=== PATIENT | male | born 1970 | race African-American/Black ===

== ENCOUNTER 2017-02-11 10:45 | Emergency (ER) | payer MEDICAID, OTHER ==
[~2017-02-11] VITALS: Ht 175.3 cm; Wt 99.3 kg
[~2017-02-11 10:45] MED LIST: ASPI81CT89 PO; ATEN25TA7 PO; FLUO10CA21 PO; LISI2.5T12 PO; QUET25TA PO; SIMV5TAB1 PO
[2017-02-11 10:51] VITALS: BP 139/77
[2017-02-11 13:17] LABS: BASOPHILS # (AUTO) 0.2 K/uL (0.00-0.22); EOSINOPHILS # (AUTO) 0.2 K/uL (0-0.4); EOSINOPHILS % (AUTO) 3.5 % (0.0-4.0); HEMATOCRIT 48.3 % (36-52); HEMOGLOBIN 15.2 g/dL (12.0-18.0); MEAN CORPUSCULAR HEMOGLOBIN 27 pg (27-31); MEAN CORPUSCULAR HGB CONC 32 g/dL (33-37); MEAN CORPUSCULAR VOLUME 86 fL (80-94); MONOCYTES # (AUTO) 0.5 K/uL (0.8-1.0); MONOCYTES % (AUTO) 8.2 % (1.7-9.3); NEUTROPHILS # (AUTO) 2.7 K/uL (1.8-7.7); NEUTROPHILS % (AUTO) 49.3 % (42.2-75.2); PLATELET COUNT (AUTO) 287 K/uL (140-450); RED BLOOD CELL COUNT(AUTO) 5.61 MIL/uL (4.20-6.10); RED CELL DISTRIBUTION WIDTH 13.5 % (11.6-13.7); WHITE BLOOD COUNT (AUTO) 5.6 K/uL (4.8-10.8)
[2017-02-11] MEDS: NACL 0.9% 1,000 ML IV SCH (13:22)
[2017-02-11 13:38] LABS: ALANINE AMINOTRANSFERASE 43 U/L (12-78); ALBUMIN 3.6 g/dL (3.4-5.0); ALKALINE PHOSPHATASE 65 U/L (46-116); AMYLASE 107 U/L (25-115); ANION GAP 11.2 (8-16); ASPARTATE AMINOTRANSFERASE 20 U/L (15-37); CALCIUM 9.2 mg/dL (8.5-10.1); CHLORIDE 103 mmol/L (98-107); CREATININE 1.1 mg/dL (0.6-1.3); GFR ARICAN-AMERICAN 94 mL/min (>90); GFR NON ARICAN-AMERICAN 77 mL/min (>90); GLUCOSE 71 mg/dL (74-106); LIPASE 123 U/L (73-393); POTASSIUM 4.2 mmol/L (3.5-5.1); SODIUM SERUM 139 mmol/L (136-145); TOTAL BILIRUBIN 0.2 mg/dL (0.0-1.0); TOTAL PROTEIN, SERUM 7.1 g/dL (6.4-8.2); UREA NITROGEN, BLOOD 14 mg/dL (7-18)
[2017-02-11 13:49] LABS: APPEARANCE,URINE CLEAR (CLEAR); BILIRUBIN,URINE NEGATIVE (NEGATIVE); BLOOD, URINE NEGATIVE (NEGATIVE); COLOR,URINE YELLOW (YELLOW); LEUKOCYTE ESTERASE ,URINE NEGATIVE (NEGATIVE); NITRITE, URINE NEGATIVE (NEGATIVE); PH,URINE 5.5 (5.0-9.0); PROTEIN,URINE NEGATIVE (NEGATIVE); UGLUCOSE NEGATIVE (NEGATIVE); UROBILINOGEN,URINE 0.2 EU/dL (0.2 - 1)
[2017-02-11 14:03] LABS: ACETONE, SERUM NEGATIVE (NEGATIVE)
[2017-02-11 14:15] VITALS: BP 122/69
[2017-02-11 14:27] LABS: BACTERIA,URINE 0-2 (RARE) /HPF (None Seen); RBC,URINE 0-5 (RARE) /HPF (0-5); SQUAMOUS EPITHELIAL CELL,UR 0-3 (FEW) /LPF (0-3 (FEW)); WBC,URINE 0-5 (RARE) /HPF (0-5)
== END 2017-02-11 14:15 | disposition home or self-care (01) ==
LOC: MED 10:45
DX: R63.1 Polydipsia (principal); R35.0 Frequency of micturition; D17.22 Benign lipomatous neoplasm of skin and subcutaneous tissue of left arm; D17.21 Benign lipomatous neoplasm of skin and subcutaneous tissue of right arm; I10 Essential (primary) hypertension; E78.00 Pure hypercholesterolemia, unspecified; Z79.82 Long term (current) use of aspirin; Z79.899 Other long term (current) drug therapy
CPT/HCPCS: 36415; 80053; 81001; 82009; 82150; 83690; 84484; 85025; 93005; 99285

== ENCOUNTER 2021-01-22 14:23 | Emergency (ER) | payer OTHER ==
[~2021-01-22] VITALS: Ht 167.6 cm; Wt 96.6 kg
[~2021-01-22 14:23] MED LIST changes: +ASPI-1822 PO; -ASPI81CT89 PO; -SIMV5TAB1 PO; +SIMV5TAB55 PO
[2021-01-22 14:27] VITALS: BP 158/91
--- NOTE | 2021-01-22 14:34 | NUR ---
Patient ambulated to room 8 with a steady gait.
--- NOTE | 2021-01-22 14:35 | NUR ---
50 Y/M PRESENTS TO ED FOR HTN SINCE YESTERDAY 168/105. PT REPORTS DIZZINESS, DENIES CHEST PAIN, SOB, NAUSEA, OR HEADACHE. RECENTLY CHANGED BP RX TO VALSARTAN X 1 MONTH. PREVIOUSLY TAKING HYDROCHLORATHIAZIDE 25 MG PMH- HTN, BORDERLINE DM, HLD RX- LIPITOR, VALSARTAN 320MG
--- NOTE | 2021-01-22 14:42 | NUR ---
PA Fraser at the bedside evaluating patient.
[2021-01-22 15:11] LABS: BASOPHILS % (AUTO) 0.8 % (0.0-2.0); EOSINOPHILS # (AUTO) 0.2 K/uL (0-0.4); EOSINOPHILS % (AUTO) 3.1 % (0.0-4.0); HEMATOCRIT 47.2 % (36-52); HEMOGLOBIN 15.9 g/dL (12.0-18.0); LYMPHOCYTES # (AUTO) 1.7 K/uL (2.0-11.5); MEAN CORPUSCULAR HEMOGLOBIN 30 pg (27-31); MEAN CORPUSCULAR HGB CONC 34 g/dL (33-37); MEAN CORPUSCULAR VOLUME 88.4 fL (80-94); MONOCYTES # (AUTO) 0.3 K/uL (0.8-1.0); MONOCYTES % (AUTO) 5.2 % (1.7-9.3); NEUTROPHILS # (AUTO) 3.5 K/uL (1.8-7.7); NEUTROPHILS % (AUTO) 60.9 % (42.2-75.2); PLATELET COUNT (AUTO) 285 K/uL (140-450); RED BLOOD CELL COUNT(AUTO) 5.34 MIL/uL (4.20-6.10); WHITE BLOOD COUNT (AUTO) 5.7 K/uL (4.8-10.8)
--- NOTE | 2021-01-22 15:11 | NUR ---
late entry: Patient placed on pulse ox and 3 lead.
--- NOTE | 2021-01-22 15:12 | NUR ---
xray at bedside
--- NOTE | 2021-01-22 15:22 | NUR ---
Patient picked up by cytotechnologist/histotechnologist and taken to CT via wheelchair.
[2021-01-22 15:28] LABS: ALBUMIN 4.1 g/dL (3.4-5.0); ANION GAP 8.2 (8-16); CARBON DIOXIDE 32.4 mmol/L (21-32); CREATININE 1.5 mg/dL (0.6-1.3); POTASSIUM 3.6 mmol/L (3.5-5.1); TOTAL BILIRUBIN 0.4 mg/dL (0.0-1.0)
[2021-01-22] MEDS ORDERED: HYDR-4004 PO (17:13)
[2021-01-22 17:27] VITALS: BP 133/92
--- NOTE | 2021-01-22 17:27 | NUR ---
Patient discharged with v/s stable. Written and verbal after care instructions given and explained. Patient alert, oriented and verbalized understanding of instructions. Ambulatory with steady gait. All questions addressed prior to discharge. ID band removed. Patient advised to follow up with PMD. Rx of Hydrochlorothiazide given. Patient educated on indication of medication including possible reaction and side effects. Opportunity to ask questions provided and answered.
== END 2021-01-22 17:27 | disposition home or self-care (01) ==
LOC: MED 14:23
DX: I10 Essential (primary) hypertension (principal); R51.9 Headache, unspecified; R42 Dizziness and giddiness; E78.5 Hyperlipidemia, unspecified; Z79.899 Other long term (current) drug therapy; Z79.82 Long term (current) use of aspirin
CPT/HCPCS: 36415; 70450; 71045; 80053; 84484; 85025; 93005; 99285

== ENCOUNTER 2021-08-09 11:11 | Emergency (ER) | payer OTHER ==
[~2021-08-09] VITALS: Ht 167.6 cm; Wt 101.6 kg
[~2021-08-09 11:11] MED LIST changes: +HYDR-4004 PO
[2021-08-09 11:19] VITALS: BP 157/96
--- NOTE | 2021-08-09 11:24 | NUR ---
AMBULATED TO BED 3
--- NOTE | 2021-08-09 11:34 | NUR ---
51/M BIB SELF WITH C/O GROIN PAIN, STATES HE NOTICED A "BUMP" ON HIS PENIS ONE MONTH AGO AND IT HAS PROGRESSIVELY GOTTEN BIGGER. DENIES URINARY SYMPTOMS, N/V/D, FEVER OR CHILLS. SAFETY PRECAUTIONS IN PLACE. MEDHX: HTN ALLERGIES: DENIES
--- NOTE | 2021-08-09 12:22 | NUR ---
Patient appears to be resting comfortably in bed. Vital Signs within normal limits. Respirations even and unlabored.
[2021-08-09 12:24] LABS: BASOPHILS % (AUTO) 0.7 % (0.0-2.0); EOSINOPHILS # (AUTO) 0.1 K/uL (0-0.4); EOSINOPHILS % (AUTO) 1.7 % (0.0-4.0); HEMATOCRIT 44.5 % (36-52); HEMOGLOBIN 15.1 g/dL (12.0-18.0); LYMPHOCYTES # (AUTO) 1.6 K/uL (2.0-11.5); LYMPHOCYTES % (AUTO) 32.9 % (20.5-51.1); MEAN CORPUSCULAR HEMOGLOBIN 30 pg (27-31); MEAN CORPUSCULAR HGB CONC 34 g/dL (33-37); MEAN CORPUSCULAR VOLUME 87.4 fL (80-94); MONOCYTES # (AUTO) 0.3 K/uL (0.8-1.0); MONOCYTES % (AUTO) 6.8 % (1.7-9.3); NEUTROPHILS # (AUTO) 2.9 K/uL (1.8-7.7); NEUTROPHILS % (AUTO) 57.9 % (42.2-75.2); PLATELET COUNT (AUTO) 277 K/uL (140-450); RED CELL DISTRIBUTION WIDTH 14.9 % (11.6-13.7)
[2021-08-09 12:27] LABS: APPEARANCE,URINE CLEAR (CLEAR); BILIRUBIN,URINE NEGATIVE (NEGATIVE); BLOOD, URINE NEGATIVE (NEGATIVE); COLOR,URINE YELLOW (YELLOW); LEUKOCYTE ESTERASE ,URINE NEGATIVE (NEGATIVE); NITRITE, URINE NEGATIVE (NEGATIVE); UGLUCOSE NEGATIVE (NEGATIVE)
[2021-08-09 12:32] LABS: ANION GAP 9.2 (8-16); CARBON DIOXIDE 31.7 mmol/L (21-32); CREATININE 1.2 mg/dL (0.6-1.3); POTASSIUM 3.9 mmol/L (3.5-5.1)
--- NOTE | 2021-08-09 12:43 | NUR ---
PT AMBULATED TO THE RESTROOM.
--- NOTE | 2021-08-09 13:30 | NUR ---
pt taken to ct
--- NOTE | 2021-08-09 13:45 | NUR ---
pt back from CT
--- NOTE | 2021-08-09 14:45 | NUR ---
Patient discharged with v/s stable. Written and verbal after care instructions OF HYPERTENSION given and explained. Patient verbalized understanding. Ambulatory with steady gait. All questions addressed prior to discharge. Advised to follow up with PMD.
== END 2021-08-09 14:45 | disposition home or self-care (01) ==
LOC: MED 11:11
DX: N48.9 Disorder of penis, unspecified (principal)
CPT/HCPCS: 36415; 74177; 80048; 81003; 85025; 99285; Q9967

== ENCOUNTER 2022-01-09 08:36 | Emergency (ER) | payer OTHER ==
[~2022-01-09] VITALS: Ht 167.6 cm; Wt 99.8 kg
[2022-01-09 08:38] VITALS: BP 162/96
--- NOTE | 2022-01-09 08:55 | NUR ---
51 YEARS OLD MALE PRESENTS TO ER C/O CHEST PRESSURE FOR 3-4 DAYS ASSOCIATED WITH SOB DENIES NAUSEA VOMITING. PLACED ON RV PARTS AND SERVICE DIRECTOR CONTINUOUS PULSE OX, EKG COMPLETED GIVEN TO DR WOOTEN NO ACUTE DISTRESS NOTED WILL CONTINUE TO MONITOR.
[2022-01-09 09:24] LABS: BASOPHILS % (AUTO) 1.1 % (0.0-2.0); EOSINOPHILS # (AUTO) 0.1 K/uL (0-0.4); EOSINOPHILS % (AUTO) 2.3 % (0.0-4.0); HEMATOCRIT 45.3 % (36-52); HEMOGLOBIN 15.5 g/dL (12.0-18.0); LYMPHOCYTES # (AUTO) 1.5 K/uL (2.0-11.5); LYMPHOCYTES % (AUTO) 35.3 % (20.5-51.1); MEAN CORPUSCULAR HEMOGLOBIN 30 pg (27-31); MEAN CORPUSCULAR HGB CONC 34 g/dL (33-37); MEAN CORPUSCULAR VOLUME 87.8 fL (80-94); MONOCYTES # (AUTO) 0.4 K/uL (0.8-1.0); MONOCYTES % (AUTO) 10.4 % (1.7-9.3); NEUTROPHILS # (AUTO) 2.2 K/uL (1.8-7.7); NEUTROPHILS % (AUTO) 50.9 % (42.2-75.2); PLATELET COUNT (AUTO) 276 K/uL (140-450); RED BLOOD CELL COUNT(AUTO) 5.16 MIL/uL (4.20-6.10); RED CELL DISTRIBUTION WIDTH 14.5 % (11.6-13.7); WHITE BLOOD COUNT (AUTO) 4.3 K/uL (4.8-10.8)
[2022-01-09 09:44] LABS: ALBUMIN 3.7 g/dL (3.4-5.0); ANION GAP 11.8 (8-16); CARBON DIOXIDE 30.6 mmol/L (21-32); CREATININE 1.2 mg/dL (0.6-1.3); POTASSIUM 3.4 mmol/L (3.5-5.1); TOTAL BILIRUBIN 0.5 mg/dL (0.0-1.0)
--- NOTE | 2022-01-09 10:22 | NUR ---
PATIENT REASSESS NO ACUTE CHANGES C/O PAIN 8-10 DR WOOTEN NOTIFIED.
[2022-01-09] MEDS ORDERED: ASPIRIN 325 MG TAB PO ONE (10:25)
[2022-01-09 12:58] VITALS: BP 126/80
--- NOTE | 2022-01-09 13:01 | NUR ---
Patient discharged with v/s stable. Written and verbal after care instructions given and explained. Patient verbalized understanding. Ambulatory with steady gait. All questions addressed prior to discharge. Advised to follow up with PMD.
== END 2022-01-09 13:01 | disposition home or self-care (01) ==
LOC: MED 08:36
DX: R07.9 Chest pain, unspecified (principal); R06.02 Shortness of breath; I10 Essential (primary) hypertension
CPT/HCPCS: 36415; 71045; 80053; 83880; 84484; 85025; 93005; 99285

== ENCOUNTER 2022-01-26 06:17 | Emergency (ER) | payer OTHER ==
[~2022-01-26] VITALS: Ht 167.6 cm; Wt 101.6 kg
[2022-01-26 06:20] VITALS: BP 160/108
[2022-01-26] MEDS ORDERED: ASPIRIN 81 MG TAB.CHEW PO ONE (06:40)
[2022-01-26] MEDS ORDERED: ALUMINUM HYD/MAG/SIMETHICONE 30 ML UDC PO ONE (07:10)
[2022-01-26 07:18] LABS: BASOPHILS % (AUTO) 0.8 % (0.0-2.0); EOSINOPHILS # (AUTO) 0.2 K/uL (0-0.4); EOSINOPHILS % (AUTO) 3.4 % (0.0-4.0); HEMOGLOBIN 15.4 g/dL (12.0-18.0); LYMPHOCYTES # (AUTO) 1.7 K/uL (2.0-11.5); LYMPHOCYTES % (AUTO) 36.2 % (20.5-51.1); MEAN CORPUSCULAR HEMOGLOBIN 30 pg (27-31); MEAN CORPUSCULAR HGB CONC 34 g/dL (33-37); MEAN CORPUSCULAR VOLUME 88.6 fL (80-94); MONOCYTES # (AUTO) 0.4 K/uL (0.8-1.0); MONOCYTES % (AUTO) 9.6 % (1.7-9.3); NEUTROPHILS # (AUTO) 2.3 K/uL (1.8-7.7); PLATELET COUNT (AUTO) 253 K/uL (140-450); RED BLOOD CELL COUNT(AUTO) 5.19 MIL/uL (4.20-6.10); RED CELL DISTRIBUTION WIDTH 14.5 % (11.6-13.7); WHITE BLOOD COUNT (AUTO) 4.6 K/uL (4.8-10.8)
[2022-01-26 07:36] LABS: ALBUMIN 3.4 g/dL (3.4-5.0); ANION GAP 9.9 (8-16); CARBON DIOXIDE 28.4 mmol/L (21-32); CREATININE 1.1 mg/dL (0.6-1.3); POTASSIUM 3.3 mmol/L (3.5-5.1); TOTAL BILIRUBIN 0.6 mg/dL (0.0-1.0)
[2022-01-26] MEDS ORDERED: POTASSIUM CHLORIDE 10 MEQ TABER PO ONE (07:45)
[2022-01-26] MEDS ORDERED: KETOROLAC 15 MG/ML VIAL IM ONE (09:30)
[2022-01-26 10:25] VITALS: BP 145/96
== END 2022-01-26 10:24 | disposition home or self-care (01) ==
LOC: MED 06:17
DX: R07.89 Other chest pain (principal); M25.511 Pain in right shoulder; M79.604 Pain in right leg; I10 Essential (primary) hypertension; Z79.899 Other long term (current) drug therapy
CPT/HCPCS: 36415; 71045; 80053; 83880; 84484; 85025; 85379; 93005; 96372; 99285; J1885

== ENCOUNTER 2024-02-10 09:42 | Emergency (ER) | payer OTHER ==
[~2024-02-10] VITALS: Ht 165.1 cm; Wt 90.7 kg
[2024-02-10 09:54] VITALS: BP 149/84; PULSE 110; RESP 18; TEMP 98.3; O2SAT 94
[2024-02-10 11:10] LABS: BASOPHILS % (AUTO) 0.3 % (0.0-2.0); EOSINOPHILS # (AUTO) 0.2 K/uL (0-0.4); EOSINOPHILS % (AUTO) 2.1 % (0.0-4.0); HEMATOCRIT 45.9 % (36-52); HEMOGLOBIN 15.5 g/dL (12.0-18.0); LYMPHOCYTES # (AUTO) 1.2 K/uL (2.0-11.5); LYMPHOCYTES % (AUTO) 15.1 % (20.5-51.1); MEAN CORPUSCULAR HEMOGLOBIN 30 pg (27-31); MEAN CORPUSCULAR HGB CONC 34 g/dL (33-37); MEAN CORPUSCULAR VOLUME 89.9 fL (80-94); MONOCYTES # (AUTO) 0.5 K/uL (0.8-1.0); MONOCYTES % (AUTO) 5.9 % (1.7-9.3); NEUTROPHILS # (AUTO) 6.1 K/uL (1.8-7.7); NEUTROPHILS % (AUTO) 76.6 % (42.2-75.2); PLATELET COUNT (AUTO) 260 K/uL (140-450); RED CELL DISTRIBUTION WIDTH 15.6 % (11.6-13.7)
[2024-02-10 11:37] LABS: ALANINE AMINOTRANSFERASE 52 U/L (12-78); ALBUMIN 3.4 g/dL (3.4-5.0); ALKALINE PHOSPHATASE 75 U/L (50-136); ANION GAP 9.8 (8-16); ASPARTATE AMINOTRANSFERASE 36 U/L (15-37); CARBON DIOXIDE 29.6 mmol/L (21-32); CHLORIDE 100 mmol/L (98-107); CREATININE 1.5 mg/dL (0.6-1.3); GFR ARICAN-AMERICAN 63 mL/min (>90); GFR NON ARICAN-AMERICAN 52 mL/min (>90); GLUCOSE 227 mg/dL (74-106); POTASSIUM 3.4 mmol/L (3.5-5.1); SODIUM SERUM 136 mmol/L (136-145); TOTAL BILIRUBIN 0.4 mg/dL (0.0-1.0); TOTAL PROTEIN, SERUM 7.1 g/dL (6.4-8.2); UREA NITROGEN, BLOOD 15 mg/dL (7-18)
[2024-02-10] MEDS: ASPIRIN 325 MG TAB PO ONE (12:54)
[2024-02-10 14:05] VITALS: BP 135/94; PULSE 80; RESP 18; TEMP 98.3; O2SAT 93
[2024-02-10] MEDS ORDERED: ROSU20TA1 PO (20:09)
[2024-02-10] MEDS ORDERED: QUET200T PO (20:09)
[2024-02-10] MEDS ORDERED: HYDR-4004 PO (20:09)
== END 2024-02-10 14:05 | disposition home or self-care (01) ==
LOC: MED 09:42
DX: R07.89 Other chest pain (principal); E78.00 Pure hypercholesterolemia, unspecified; I10 Essential (primary) hypertension; Z79.899 Other long term (current) drug therapy
CPT/HCPCS: 36415; 71045; 80053; 83880; 84484; 85025; 93005; 99285